=== PATIENT | male | born 1970 | race African-American/Black ===

== ENCOUNTER 2021-08-29 06:46 | Emergency (ER) | payer MEDICAID, OTHER, SELFPAY ==
[2021-08-29] MEDS ORDERED: Lidocaine 1% (PF) 30 ML VIAL ONE (07:08)
== END 2021-08-29 06:50 | disposition home or self-care (01) ==
LOC: NAV ERS 06:46
DX: N49.2 Inflammatory disorders of scrotum (principal); I10 Essential (primary) hypertension; E11.9 Type 2 diabetes mellitus without complications; E78.5 Hyperlipidemia, unspecified; F17.210 Nicotine dependence, cigarettes, uncomplicated; Z79.84 Long term (current) use of oral hypoglycemic drugs; Z79.899 Other long term (current) drug therapy
CPT/HCPCS: 55100; J2001